=== PATIENT | female | born 1935 | race Caucasian/White ===

== ENCOUNTER 2017-09-29 17:45 | Emergency (ER) | payer MEDICARE, OTHER ==
[~2017-09-29] VITALS: Ht 152.4 cm; Wt 71.7 kg
[~2017-09-29 17:45] MED LIST: ASPI81EC PO; CALCIUM PO; CETI10 PO; ESCI10 PO; GLIM4 PO; HYDCHL25 PO; METF500 PO; MULVITA PO; OMEGA 3 PO; ONGLYZA 5 MG PO; PAMIDRONATE; PROP80ER PO; RABE20 PO; SOLI5 PO; TAMO10 PO; TAMO20 PO; TYLENOL PO; VITAMIN D PO
[2017-09-29] MEDS ORDERED: Percocet 5-3251 EACH PO (21:35)
[2017-09-29] MEDS ORDERED: ULTRA-LIGHT RO1 EACH MC (21:41)
== END 2017-09-29 22:26 | disposition home or self-care (01) ==
LOC: ER 17:45
DX: S62.666B Nondisplaced fracture of distal phalanx of right little finger, initial encounter for open fracture (principal); S82.451A Displaced comminuted fracture of shaft of right fibula, initial encounter for closed fracture; W17.89XA Other fall from one level to another, initial encounter; Z88.0 Allergy status to penicillin; Z88.8 Allergy status to other drugs, medicaments and biological substances; Z91.018 Allergy to other foods; Z79.899 Other long term (current) drug therapy; Z79.82 Long term (current) use of aspirin; I10 Essential (primary) hypertension; E11.9 Type 2 diabetes mellitus without complications; Z85.3 Personal history of malignant neoplasm of breast
CPT/HCPCS: 29515; 73130; 73590; 90471; 90714; 93005; 93010; 96372; 99284; J0690

== ENCOUNTER 2017-10-05 11:34 | Day surgery (SDC) | payer MEDICARE, OTHER ==
[~2017-10-05 11:34] MED LIST changes: +Percocet 5-3251 EACH PO; +ULTRA-LIGHT RO1 EACH MC
== END 2017-10-05 22:55 | disposition home or self-care (01) ==
LOC: WOUND 11:34
DX: Z48.00 Encounter for change or removal of nonsurgical wound dressing (principal); S61.216A Laceration without foreign body of right little finger without damage to nail, initial encounter; I10 Essential (primary) hypertension; Z85.3 Personal history of malignant neoplasm of breast
CPT/HCPCS: G0463

== ENCOUNTER 2017-10-07 01:01 | Day surgery (SDC) | payer MEDICARE, OTHER | END 2017-10-07 22:56 | disposition home or self-care (01) | LOC: WOUND 01:01 | DX: Z48.00 Encounter for change or removal of nonsurgical wound dressing (principal); S61.216D Laceration without foreign body of right little finger without damage to nail, subsequent encounter; I10 Essential (primary) hypertension; X58.XXXD Exposure to other specified factors, subsequent encounter; Z85.3 Personal history of malignant neoplasm of breast; M81.0 Age-related osteoporosis without current pathological fracture; E11.8 Type 2 diabetes mellitus with unspecified complications; Z79.899 Other long term (current) drug therapy | CPT/HCPCS: 36415; 80048; 80076; 82523; 82570; 83036; 85025; G0463 ==

== ENCOUNTER 2017-10-12 11:00 | Day surgery (SDC) | payer MEDICARE, OTHER | END 2017-10-12 23:23 | disposition home or self-care (01) | LOC: WOUND 11:00 | DX: Z48.00 Encounter for change or removal of nonsurgical wound dressing (principal); S61.216A Laceration without foreign body of right little finger without damage to nail, initial encounter; I10 Essential (primary) hypertension; Z85.3 Personal history of malignant neoplasm of breast | CPT/HCPCS: G0463 ==

== ENCOUNTER 2017-10-19 10:50 | Day surgery (SDC) | payer MEDICARE, OTHER | END 2017-10-19 13:21 | disposition home or self-care (01) | LOC: WOUND 10:50 | DX: S61.216A Laceration without foreign body of right little finger without damage to nail, initial encounter (principal); I10 Essential (primary) hypertension; Z85.3 Personal history of malignant neoplasm of breast | CPT/HCPCS: G0463 ==

== ENCOUNTER → 2020-06-05 | Outpatient (CLI) | payer MEDICARE, OTHER | END | disposition home or self-care (01) | LOC: LAB SHORT 11:20 → PLD 11:20 → LAB SHORT 06-06 11:16 | DX: C44.622 Squamous cell carcinoma of skin of right upper limb, including shoulder (principal) | CPT/HCPCS: 88305 ==

== ENCOUNTER → 2020-09-02 | Outpatient (CLI) | payer MEDICARE, OTHER | END | disposition home or self-care (01) | LOC: PLD 08:00 → LAB SHORT 08:00 | DX: D48.5 Neoplasm of uncertain behavior of skin (principal) | CPT/HCPCS: 88305 ==

== ENCOUNTER → 2022-08-13 | Outpatient (CLI) | payer MEDICARE, OTHER ==
[~2022-08-13] MED LIST changes: +GLIMEPIRIDE4 MG PO; +GLUCOTROL5 MG PO; +HYDR1TAB94 PO; +LOSARTAN POTASS50 M1 PO; +SITA100T2 PO
[2022-08-13 11:34] LABS: BASOPHILS ABSOLUTE AUTO 0.06 K/mm3 (0.00-0.23); BASOPHILS PERCENT AUTO 1 % (0-2); EOSINOPHILS PERCENT AUTO 2 % (0-6); Hematocrit 46.3 % (33.0-51.0); IMMATURE GRAN ABSOLUTE AUTO 0.04 K/mm3 (0.00-0.10); IMMATURE GRAN PERCENT AUTO 0 % (0-1); LYMPHOCYTES ABSOLUTE AUTO 1.67 K/mm3 (0.84-5.20); LYMPHOCYTES PERCENT AUTO 15 % (21-46); MONOCYTES ABSOLUTE AUTO 0.82 K/mm3 (0.16-1.47); MONOCYTES PERCENT AUTO 8 % (4-13); Mean Corpuscular HGB 27.6 pg (26.0-34.0); Mean Corpuscular HGB Conc 32.4 g/dL (31.5-36.5); Mean Corpuscular Volume 85 fL (80-100); Mean Platelet Volume 10.3 fL (9.1-12.4); NEUTROPHILS ABSOLUTE AUTO 8.07 K/mm3 (1.96-9.15); NEUTROPHILS PERCENT AUTO 74 % (41-73); Platelet Count 239 K/mm3 (150-400); RDW Coefficient Variation 13.7 % (11.7-14.2); RDW Standard Deviation 42.5 fL (35.1-46.3); Red Blood Cell Count 5.44 M/mm3 (3.80-5.20); White Blood Cell Count 10.86 K/mm3 (4.00-11.30)
[2022-08-13 11:53] LABS: Albumin, Blood 3.8 g/dL (3.4-5.0); Bilirubin, Total 0.5 mg/dL (0.1-1.0); Bun/Creatinine Ratio 26.3 (12.0-20.0); Calcium, Blood 10.4 mg/dL (8.5-10.1); Creatinine, Blood 0.8 mg/dL (0.40-1.00); Potassium, Blood 4.1 mmol/L (3.5-5.5); Thyroid Stimulating Hormone 4.128 uIU/mL (0.360-4.800); Total Protein, Blood 7.8 g/dL (6.4-8.2)
== END | disposition home or self-care (01) ==
LOC: LAB SHORT 11:29
PROVIDERS: Chiropractor
DX: R07.9 Chest pain, unspecified (principal); R53.83 Other fatigue
CPT/HCPCS: 80053; 83880; 84443; 84484; 85025; 85379

== ENCOUNTER → 2022-08-24 | Outpatient (CLI) | payer MEDICARE, OTHER ==
[2022-08-24 20:07] LABS: Calcium, Urine 18.6 mg/dL (< 17.5)
== END | disposition home or self-care (01) ==
LOC: LAB SHORT 13:17 → LAB FUT 08-14 10:30
PROVIDERS: Internal Medicine
DX: E83.52 Hypercalcemia (principal)
CPT/HCPCS: 81050; 82340

== ENCOUNTER 2022-12-16 08:49 | Day surgery (SDC) | payer MEDICARE, OTHER ==
[~2022-12-16] VITALS: Ht 147.3 cm; Wt 68.8 kg
[2022-12-16] VITALS (14 sets, daily range): BP systolic 102–161; BP diastolic 64–90
[~2022-12-16 08:49] MED LIST changes: +MYRBETRIQ25 MG PO; +OMEP20ER PO; +PIOG15 PO; +VITAMIN D310 MC4 PO
--- NOTE | 2022-12-16 14:13 | NUR ---
DISCHARGE NOTE PT A&OX4, BREATHING RA, VSS, NO PAIN OR NAUSEA. DAUGHTER AT BEDSIDE. PT HAS NO CONCERNS. PT TOLERATING PO FLUIDS AND FOOD. PT DRESSED WITH ASSISTANCE AND TO ESTHER Nelson RN, PT VOIDED PRIOR TO DISCHARGE. Discharge instructions reviewed with patient. Patient verbalizes understanding. Copy given to patient to take home. Dressing to procedure site clean, dry, intact with no visible drainage, swelling, erythema or bruising noted. Discharged via wheelchair to private car for ride home.
== END 2022-12-16 14:16 | disposition home or self-care (01) ==
LOC: ORSCMMR 08:49 → ORD 10:00 → ORSCMMR 14:16
PROVIDERS: Surgery
PROC: 0HBU0ZZ Excision of Left Breast, Open Approach (ICD-10-PCS; principal; 2022-12-16 10:00)
DX: C50.912 Malignant neoplasm of unspecified site of left female breast (principal); I10 Essential (primary) hypertension; E11.9 Type 2 diabetes mellitus without complications; K21.9 Gastro-esophageal reflux disease without esophagitis; I48.92 Unspecified atrial flutter; Z79.82 Long term (current) use of aspirin; Z79.899 Other long term (current) drug therapy
CPT/HCPCS: 82947; 88307; J0690; J1100; J1885; J2370; J2405; J2704; J3010; J7120